=== PATIENT | male | born 1965 | race Two or more races ===

== ENCOUNTER 2024-08-21 07:33 | Outpatient (RCR) | payer MEDICARE, MEDICAID, SELFPAY | END 2024-08-24 23:59 | disposition home or self-care (01) | LOC: SWHD 07:33 | PROVIDERS: Visit Provider Student in an Organized Health Care Education/Training Program | DX: I96 Gangrene, not elsewhere classified (principal); L97.512 Non-pressure chronic ulcer of other part of right foot with fat layer exposed; S91.104A Unspecified open wound of right lesser toe(s) without damage to nail, initial encounter; X58.XXXA Exposure to other specified factors, initial encounter; E11.40 Type 2 diabetes mellitus with diabetic neuropathy, unspecified; Z79.84 Long term (current) use of oral hypoglycemic drugs; M19.91 Primary osteoarthritis, unspecified site; N18.6 End stage renal disease; Z86.73 Personal history of transient ischemic attack (TIA), and cerebral infarction without residual deficits | CPT/HCPCS: 11042 ×2; 82962; 99212; 99213; A9270; G0277; G0463 ==

== ENCOUNTER 2024-09-20 07:43 | Outpatient (RCR) | payer MEDICARE, MEDICAID, SELFPAY | END 2024-09-24 23:59 | disposition home or self-care (01) | LOC: SWHD 07:43 | PROVIDERS: Visit Provider Student in an Organized Health Care Education/Training Program | DX: I96 Gangrene, not elsewhere classified (principal); L97.511 Non-pressure chronic ulcer of other part of right foot limited to breakdown of skin; S91.104A Unspecified open wound of right lesser toe(s) without damage to nail, initial encounter; X58.XXXA Exposure to other specified factors, initial encounter; E11.40 Type 2 diabetes mellitus with diabetic neuropathy, unspecified; Z79.84 Long term (current) use of oral hypoglycemic drugs; M19.91 Primary osteoarthritis, unspecified site; N18.6 End stage renal disease; Z86.73 Personal history of transient ischemic attack (TIA), and cerebral infarction without residual deficits | CPT/HCPCS: 97597; 82962; 99213; A9270; G0277; G0463 ==

== ENCOUNTER 2024-10-25 07:47 | Outpatient (RCR) | payer MEDICARE, MEDICAID, SELFPAY | END 2024-10-25 23:59 | disposition home or self-care (01) | LOC: SWHD 07:47 | PROVIDERS: PCP Family Medicine; Referring Provider Family Medicine; Visit Provider Surgery | DX: L97.511 Non-pressure chronic ulcer of other part of right foot limited to breakdown of skin (principal); S91.104A Unspecified open wound of right lesser toe(s) without damage to nail, initial encounter; X58.XXXA Exposure to other specified factors, initial encounter; E11.40 Type 2 diabetes mellitus with diabetic neuropathy, unspecified; Z79.84 Long term (current) use of oral hypoglycemic drugs; M19.91 Primary osteoarthritis, unspecified site; N18.6 End stage renal disease; Z86.73 Personal history of transient ischemic attack (TIA), and cerebral infarction without residual deficits | CPT/HCPCS: 97597; 82962; 99212; 99213; G0277; G0463 ==

== ENCOUNTER → 2024-11-08 | Outpatient (CLI) | payer MEDICARE, MEDICAID, SELFPAY | END | disposition home or self-care (01) | LOC: SWHD 08:03 | PROVIDERS: PCP Family Medicine; Referring Provider Family Medicine; Visit Provider Surgery | DX: I96 Gangrene, not elsewhere classified (principal); L97.511 Non-pressure chronic ulcer of other part of right foot limited to breakdown of skin; S91.104A Unspecified open wound of right lesser toe(s) without damage to nail, initial encounter; X58.XXXA Exposure to other specified factors, initial encounter; E11.40 Type 2 diabetes mellitus with diabetic neuropathy, unspecified; Z79.84 Long term (current) use of oral hypoglycemic drugs; M19.91 Primary osteoarthritis, unspecified site; N18.6 End stage renal disease; Z86.73 Personal history of transient ischemic attack (TIA), and cerebral infarction without residual deficits | CPT/HCPCS: 99212; A9270; G0463 ==

== ENCOUNTER 2024-12-26 15:50 | Emergency (ER) | payer MEDICARE, MEDICAID, SELFPAY ==
[2024-12-26 16:41] VITALS: BP 169/80; PULSE 86; RESP 18; TEMP 39; O2SAT 98; BMI 33.3
--- NOTE | 2024-12-26 16:43 | XR_ITS ---
Examination: PA chest single view TECHNIQUE: Upright PA chest single view Exam date and time: December 26, 2024 1659 hours INDICATIONS: Fever beginning 3 days ago. FINDINGS: Subsegmental atelectasis left base Normal heart size No lobar pneumonia Moderate osteopenia IMPRESSION: No lobar pneumonia
--- NOTE | 2024-12-26 16:43 | EKG_ITS ---
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[id number] Requested By: Henrietta Quiroz ([facility]) Mindy Order Number: [id number] Reading MD: Henrietta Quiroz ([facility]) Mindy Measurements Intervals [place] Rate: 89 P: 19 NE: 187 QRS: -14 QRSD: 89 T: 67 QT: 338 QTc: 413 Interpretive Statements SINUS RHYTHM LEFT VENTRICULAR HYPERTROPHY AND ST-T CHANGE [VOLTAGE CRITERIA PLUS ST/T ABNORMALITY] POSSIBLE ANTERIOR MYOCARDIAL INFARCTION , OF INDETERMINATE AGE [30 ms Q WAVE IN V3/V4, OR R < 0.2 mV IN V4] Compared to ECG 06/06/2024 08:40:47 Left ventricular hypertrophy now present ST (T wave) deviation now present Myocardial infarct finding now present Prolonged QT interval no longer present /store/S0/[id number]/[id number].pdf
--- NOTE | 2024-12-26 16:50 | PD.EDRME ---
Rapid Medical Screening Exam RME Arrival date/time: 12/26/24 15:50 This is a 59-year-old history of end-stage renal failure history of HFpEF, CVA male who presents emergency department with complaints of fever, facial swelling. I have greeted and performed a focused initial assessment of this patient. Initial appropriate labs ordered at this time. A comprehensive ED assessment and evaluation of the patient and analysis of all test and completion of medical decision making process will be conducted by additional ED provider. Chief Complaint: Shortness of Breath/Dyspnea Time Seen by Provider: 12/26/24 16:38 Vital signs: Vital Signs Temperature 102.2 F H 12/26/24 16:41 Pulse Rate 86 12/26/24 16:41 Respiratory Rate 18 12/26/24 16:41 Blood Pressure 169/80 H 12/26/24 16:41 Pulse Oximetry (%) 98 12/26/24 16:41 Oxygen Delivery Method Room Air 12/26/24 16:41
[2024-12-26 17:47] VITALS: TEMP 39
[2024-12-26] MEDS: ACETAMINOPHEN 500 MG TABLET 1000 MG PO (17:47)
[2024-12-26 18:00] LABS: Lactate (Lactic Acid) 1.8 mMol/L (0.4-2.0)
[2024-12-26 18:02] LABS: Basophils % (Auto) 0 % (0-2.5); Eosinophils % (Auto) 0 % (0-10); Hematocrit 35.1 % (41.0-53.0); Hemoglobin 12.1 g/dL (13.5-16.0); Immature Granulocytes % (Auto) 0 % (0-0); Immature Granulocytes Auto 0.02 Thou/mm3 (0.00-0.00); Lymphocytes # (Auto) 0.8 Thou/mm3 (1.0-4.8); Lymphocytes % (Auto) 12 % (10-50); Mean Corpuscular HGB Conc 34.5 g/dl (31.0-37.0); Mean Corpuscular Hemoglobin 34.5 pg (25.0-35.0); Mean Corpuscular Volume 100 fL (80-100); Monocytes # (Auto) 0.7 Thou/mm3 (0.0-0.8); Monocytes % (Auto) 9 % (0-12); Neutrophils # (Auto) 5.7 Thou/mm3 (1.8-7.7); Neutrophils % (Auto) 78 % (37-80); Nucleated Red Blood Cell % 0 /100 WBC (0); Platelet Count 138 Thou/mm3 (140-440); RDW Standard Deviation 49.4 fL (35.1-43.9); Red Blood Count 3.51 Miln/mm3 (4.50-5.90); White Blood Count 7.2 Thou/mm3 (3.8-10.6)
[2024-12-26 18:33] LABS: Prothrombin Time 11.4 Seconds (9.0-12.2)
[2024-12-26 18:50] LABS: Alanine Aminotransferase 17 U/L (10-49); Albumin, Serum 4.6 gm/dL (3.5-5.0); Albumin/Globulin Ratio 1.2 (1.2-2.2); Alkaline Phosphatase 73 U/L (46-116); Anion Gap 11 (7-16); Aspartate Amino Transferase 13 U/L (0-34); BUN/Creatinine Ratio 4 Ratio (12-20); Bilirubin,Total 0.8 mg/dL (0.3-1.2); Blood Urea Nitrogen 23 mg/dL (9-23); Calcium 9.7 mg/dL (8.3-10.6); Calcium (Corrected) 9.7 mg/dL (8.5-10.1); Chloride 93 mMol/L (98-107); Creatinine (Component) 5.2 mg/dL (0.6-1.3); Estimated Creatinine Clearance 16.2 mL/min (>60); Globulin 3.9 gm/dL (2.3-3.5); Glucose 124 mg/dL (74-106); Lipase 33 U/L (12-53); Osmolality,Calculated 280 (275-295); Potassium 4.5 mMol/L (3.4-5.1); Procalcitonin 1.41 ng/ml (0.0-0.49); Sodium 138 mMol/L (136-145); Total Protein 8.5 gm/dL (5.7-8.2); Troponin I 0.023 ng/mL (0.0-0.045); eGFR 12 See Note
[2024-12-26 19:44] VITALS: TEMP 38.1
[2024-12-26 20:57] VITALS: BP 93/57; PULSE 87; RESP 18; TEMP 37.7; O2SAT 91
[2024-12-26 23:43] VITALS: BP 100/61; PULSE 80; RESP 18; TEMP 37.3; O2SAT 99
--- NOTE | 2024-12-27 00:38 | PC.NURSE ---
no answer from lobby when called for room in ed
--- NOTE | 2024-12-27 01:04 | PC.NURSE ---
no answer from lobby when called for room in ed
--- NOTE | 2024-12-27 01:22 | PC.NURSE ---
no answer in lobby when called for room in ed
== END 2024-12-27 01:23 | disposition left against medical advice (07) ==
LOC: SERX 17:53
PROVIDERS: Nurse Practitioner Primary Care; Emergency Provider Family Medicine; PCP Family Medicine
DX: R50.9 Fever, unspecified (principal); R22.0 Localized swelling, mass and lump, head; I50.30 Unspecified diastolic (congestive) heart failure; N18.6 End stage renal disease; Z86.73 Personal history of transient ischemic attack (TIA), and cerebral infarction without residual deficits; Z53.29 Procedure and treatment not carried out because of patient's decision for other reasons
CPT/HCPCS: 36415; 71045; 80053; 83605; 83690; 84145; 84484; 85025; 85610; 87040; 93005; 99281; A9270

== ENCOUNTER → 2025-03-31 | Outpatient (CLI) | payer MEDICARE, MEDICAID, SELFPAY ==
[2025-03-31 13:12] LABS: Basophils # (Auto) 0.0 Thou/mm3 (0.0-0.2); Basophils % (Auto) 1 % (0-2.5); Eosinophils # (Auto) 0.2 Thou/mm3 (0.0-0.5); Eosinophils % (Auto) 3 % (0-10); Hematocrit 31.0 % (41.0-53.0); Hemoglobin 11.0 g/dL (13.5-16.0); Immature Granulocytes Auto 0.01 Thou/mm3 (0.00-0.00); Lymphocytes # (Auto) 1.9 Thou/mm3 (1.0-4.8); Lymphocytes % (Auto) 35 % (10-50); Mean Corpuscular HGB Conc 35.5 g/dl (31.0-37.0); Mean Corpuscular Hemoglobin 35.6 pg (25.0-35.0); Mean Corpuscular Volume 100 fL (80-100); Monocytes # (Auto) 0.4 Thou/mm3 (0.0-0.8); Monocytes % (Auto) 7 % (0-12); Neutrophils # (Auto) 2.9 Thou/mm3 (1.8-7.7); Neutrophils % (Auto) 54 % (37-80); Nucleated Red Blood Cell # 0.00 Thou/mm3 (0.00-0.00); Nucleated Red Blood Cell % 0 /100 WBC (0); Platelet Count 132 Thou/mm3 (140-440); RDW Standard Deviation 50.4 fL (35.1-43.9); Red Blood Count 3.09 Miln/mm3 (4.50-5.90); White Blood Count 5.4 Thou/mm3 (3.8-10.6)
[2025-03-31 13:23] LABS: Alanine Aminotransferase 20 U/L (10-49); Albumin, Serum 4.5 gm/dL (3.5-5.0); Albumin/Globulin Ratio 1.4 (1.2-2.2); Alkaline Phosphatase 94 U/L (46-116); Anion Gap 13 (7-16); Aspartate Amino Transferase 16 U/L (0-34); BUN/Creatinine Ratio 5 Ratio (12-20); Bilirubin,Total 0.5 mg/dL (0.3-1.2); Blood Urea Nitrogen 50 mg/dL (9-23); Calcium 9.2 mg/dL (8.3-10.6); Calcium (Corrected) 9.2 mg/dL (8.5-10.1); Carbon Dioxide 31.9 mMol/L (20.0-31.0); Chloride 95 mMol/L (98-107); Creatinine (Component) 9.4 mg/dL (0.6-1.3); Globulin 3.3 gm/dL (2.3-3.5); Glucose 118 mg/dL (74-106); Osmolality,Calculated 293 (275-295); Potassium 4.6 mMol/L (3.4-5.1); Sodium 140 mMol/L (136-145); Total Protein 7.8 gm/dL (5.7-8.2); eGFR 6 See Note
[2025-03-31 13:25] LABS: INR 1.0 (0.9-1.3); Partial Thromboplastin Time 27.3 Seconds (22.0-36.0); Prothrombin Time 11.0 Seconds (9.0-12.2)
== END | disposition home or self-care (01) ==
LOC: COPL 11:44
PROVIDERS: PCP Family Medicine; Referring Provider Student in an Organized Health Care Education/Training Program; Visit Provider Student in an Organized Health Care Education/Training Program
DX: Z01.818 Encounter for other preprocedural examination (principal); I70.213 Atherosclerosis of native arteries of extremities with intermittent claudication, bilateral legs
CPT/HCPCS: 36415; 80053; 85025; 85610; 85730